=== PATIENT | female | born 1975 | race Two or more races ===

== ENCOUNTER → 2018-02-20 | Outpatient (CLI) | payer BC | END | disposition home or self-care (01) | LOC: HKI 13:49 | DX: M89.9 Disorder of bone, unspecified (principal) | CPT/HCPCS: 73502 ==

== ENCOUNTER 2018-03-30 07:04 | Emergency (ER) | payer BC ==
[2018-03-30] MEDS: KETOROLAC 30 MG INJ IM (08:04)
== END 2018-03-30 08:22 | disposition home or self-care (01) ==
LOC: FTE 07:04
DX: M54.5 Low back pain (principal)
CPT/HCPCS: 81025; 96372; 99284-25

== ENCOUNTER 2018-11-02 16:36 | Emergency (ER) | payer BC | END 2018-11-02 18:06 | disposition home or self-care (01) | LOC: FTE 16:36 | DX: H11.31 Conjunctival hemorrhage, right eye (principal) | CPT/HCPCS: 99282; Z7502 ==

== ENCOUNTER 2019-02-04 05:57 | Day surgery (SDC) | payer BC ==
[2019-02-04] MEDS ORDERED: CEFAZOLIN 2 GM/50 ML (PMX) 50 ML IVPB (06:00)
[2019-02-04] MEDS: SOD CHLORIDE 0.9% 1,000 ML IV (06:39)
[2019-02-04] MEDS: BUPIVACAINE 0.5%/EPI (SDV) 30 ML INJ (07:24)
[2019-02-04] MEDS ORDERED: METOCLOPRAMIDE 10 MG INJ IV (07:30)
[2019-02-04] MEDS ORDERED: MEPERIDINE 25 MG INJ IV (07:30)
[2019-02-04] MEDS ORDERED: HYDROmorphONE 1 MG/5 ML IV SYRINGE IV ×2 (07:30)
[2019-02-04] MEDS ORDERED: ONDANSETRON 4 MG INJ IV ×2 (07:30→09:30)
[2019-02-04] MEDS ORDERED: FENTAnyl 50 MCG/ML VIAL IV (07:30)
[2019-02-04] MEDS ORDERED: ALBUTEROL 0.083% (NEB) 2.5 MG/3 ML AMP HHN (07:30)
[2019-02-04] MEDS ORDERED: DIPHENHYDRAMINE 50 MG INJ IV (07:30)
[2019-02-04] MEDS ORDERED: FENTAnyl 50 MCG/ML VIAL (07:44)
[2019-02-04] MEDS ORDERED: ROPIVACAINE 0.5 % 30 ML VIAL (07:45)
[2019-02-04] MEDS ORDERED: ROCURONIUM 50 MG INJ (08:07)
[2019-02-04] MEDS ORDERED: GLYCOPYRROLATE 0.4 MG INJ (08:07)
[2019-02-04] MEDS ORDERED: CEFAZOLIN 1 GM INJ (08:07)
[2019-02-04] MEDS ORDERED: SUCCINYLCHOLINE CHLORIDE 100 MG/5 ML SYG IV (08:07)
[2019-02-04] MEDS ORDERED: NEOSTIGMINE 10 MG INJ (08:07)
[2019-02-04] MEDS ORDERED: PROPOFOL 20 ML (08:07)
[2019-02-04] MEDS ORDERED: LIDOCAINE 100 MG SYRINGE (08:07)
[2019-02-04] MEDS ORDERED: morphine 2 MG INJ IV (09:30)
[2019-02-04] MEDS ORDERED: KETOROLAC 30 MG INJ IV (09:30)
[2019-02-04] MEDS ORDERED: IBUPROFEN 600 MG TAB PO (09:30)
[2019-02-04] MEDS ORDERED: HYDROCODONE/APAP (5/325) TAB PO (09:30)
[2019-02-04] MEDS: KETOROLAC 30 MG INJ IV (09:57)
[2019-02-04] MEDS: FENTAnyl 50 MCG/ML VIAL IV (10:04)
[2019-02-04] MEDS: HYDROmorphONE 1 MG/5 ML IV SYRINGE IV (10:04)
[2019-02-04] MEDS: HYDROCODONE/APAP (5/325) TAB PO (11:07)
== END 2019-02-04 12:00 | disposition home or self-care (01) ==
LOC: SDS 05:57
DX: K80.10 Calculus of gallbladder with chronic cholecystitis without obstruction (principal)
CPT/HCPCS: 47562; 88304